=== PATIENT | female | born 1975 | race Two or more races ===

== ENCOUNTER → 2022-05-26 | Emergency (ER) | payer MEDICAID, OTHER ==
[~2022-05-26] VITALS: Ht 162.6 cm; Wt 74.8 kg
[~2022-05-26] MED LIST: IBUP800T27 PO; IBUPROFEN 800 MG TAB PO ONE
[2022-05-26 15:12] VITALS: BP 136/88
== END | disposition home or self-care (01) ==
LOC: ER 15:02
DX: S93.401A Sprain of unspecified ligament of right ankle, initial encounter (principal); X58.XXXA Exposure to other specified factors, initial encounter; Y93.K1 Activity, walking an animal; Y92.89 Other specified places as the place of occurrence of the external cause; Y99.8 Other external cause status
CPT/HCPCS: 73610

== ENCOUNTER 2022-10-29 18:45 | Emergency (ER) | payer MEDICAID ==
[~2022-10-29] VITALS: Ht 162.6 cm; Wt 70.5 kg
[~2022-10-29 18:45] MED LIST changes: -IBUPROFEN 800 MG TAB PO ONE
[2022-10-29 20:05] VITALS: BP 118/79
[2022-10-29 20:58] LABS: Albumin 2.7 g/dL (3.4-5.0); BUN/Creatinine Ratio 12.7; Calcium 8.4 mg/dL (8.5-10.1); Potassium 3.9 mmol/L (3.5-5.1)
[2022-10-29 21:01] LABS: Bilirubin, Total 0.2 mg/dL (0.2-1.0); Total Protein 6.6 g/dL (6.4-8.2)
[2022-10-29 21:11] LABS: Basophils # (auto) 0 10 ^3/uL (0-0.2); Hemoglobin 10.2 g/dL (12.2-16.2); Lymphocytes % (auto) 21.3 % (10.0-50.0); Monocytes # (auto) 0.7 10 ^3/uL (0-1.3); White Blood Cell 8.2 10^3/uL (4.4-10.8)
[2022-10-29 21:12] LABS: Basophils % (auto) 0.4 % (0.0-2.0); Eosinophils # (auto) 0.3 10 ^3/uL (0-0.8); Eosinophils % (auto) 4.2 % (0.0-7.0); Hematocrit 32.4 % (36.0-46.0); Lymphocytes # (auto) 1.7 10 ^3/uL (0.4-5.4); Mean Corpuscular Hemoglobin 25.5 pg (28.0-32.0); Mean Corpuscular Hgb Conc. 31.5 g/dL (32.0-36.0); Mean Corpuscular Volume 80.9 fL (80.0-100.0); Monocytes % (auto) 9.1 % (0.0-12.0); Neutrophils # (auto) 5.3 10 ^3/uL (1.6-8.6); Red Blood Cells 4.01 10^6/uL (4.0-5.20); Red Cell Distribution Width 16.3 % (11.8-14.3)
[2022-10-29 21:29] LABS: Urine Bacteria NONE SEEN /hpf (None Seen); Urine Blood 2+ /uL (Negative); Urine Mucus FEW (None Seen); Urine Specific Gravity 1.022 (1.001-1.035); Urine WBC 69 /hpf (0 - 5)
[2022-10-29] MEDS ORDERED: cefTRIAXone SOD 1,000 MG VL IM ONE (23:15)
[2022-10-29] MEDS ORDERED: LEVO-28 PO (23:19)
== END 2022-10-30 00:58 | disposition left against medical advice (07) ==
LOC: ER 18:50
DX: N39.0 Urinary tract infection, site not specified (principal); E27.8 Other specified disorders of adrenal gland; D17.5 Benign lipomatous neoplasm of intra-abdominal organs; R93.89 Abnormal findings on diagnostic imaging of other specified body structures; F17.210 Nicotine dependence, cigarettes, uncomplicated; J45.909 Unspecified asthma, uncomplicated
CPT/HCPCS: 36415; 74176; 80053; 81001; 83690; 85025